=== PATIENT | female | born 1940 | race Caucasian/White ===

== ENCOUNTER 2023-08-09 14:26 | Emergency (ER) | payer MEDICARE ==
[~2023-08-09] VITALS: Ht 167.6 cm; Wt 80.5 kg
[~2023-08-09 14:26] MED LIST: ATEN-169 PO
[2023-08-09] MEDS ORDERED: TRIA15CR62 TOP (16:30)
[2023-08-09 16:53] VITALS: BP 180/90; PULSE 78; RESP 18; TEMP 98; O2SAT 98
== END 2023-08-09 16:55 | disposition home or self-care (01) ==
LOC: ER 14:27
DX: R21 Rash and other nonspecific skin eruption (principal); I10 Essential (primary) hypertension; E03.9 Hypothyroidism, unspecified; Z88.5 Allergy status to narcotic agent; Z88.8 Allergy status to other drugs, medicaments and biological substances
CPT/HCPCS: 99283